=== PATIENT | female | born 1955 | race Caucasian/White ===

== ENCOUNTER 2018-11-12 13:19 | Day surgery (SDC) | payer BC ==
[2018-11-12] MEDS ORDERED: MIDAZOLAM 1 MG/ML 2 ML INJ ×2 (14:40)
[2018-11-12] MEDS ORDERED: FENTAnyl 50 MCG/ML VIAL (14:40)
== END 2018-11-12 14:43 | disposition home or self-care (01) ==
LOC: GIL 13:19
DX: Z12.11 Encounter for screening for malignant neoplasm of colon (principal); K57.30 Diverticulosis of large intestine without perforation or abscess without bleeding; I10 Essential (primary) hypertension
CPT/HCPCS: 45378